=== PATIENT | female | born 1995 | race Caucasian/White ===

== ENCOUNTER 2016-11-10 17:32 | Emergency (ER) | payer OTHER ==
[~2016-11-10] VITALS: Ht 165.1 cm; Wt 96.3 kg
[~2016-11-10 17:32] MED LIST: COL100 PO; MAC100 PO; NORCO1 TA2 PO
[2016-11-10 20:59] LABS: BASOPHIL % 0.6 % (0-2); PLATELET COUNT 196 x10^3mcL (130-400)
[2016-11-10 21:00] LABS: RED CELL DISTRIBUTION WIDTH 14.7 % (11.5-14.5)
[2016-11-10 21:02] LABS: CALCIUM 8.9 mg/dL (8.5-10.1); CARBON DIOXIDE 27.7 mmol/L (21-32); CHLORIDE SERUM 107 mmol/L (98-107); CREATININE SERUM 0.7 mg/dL (0.6-1.0); GFR1 > 60 mL/min; GLUCOSE SERUM 101 mg/dL (74-106); POTASSIUM SERUM 4.3 mmol/L (3.5-5.1); SODIUM SERUM 143 mmol/L (136-145)
[2016-11-10 21:06] LABS: ALBUMIN 3.6 g/dL (3.4-5.0); ALKALINE PHOSPHATASE 64 U/L (46-116); ALT/SGPT 30 U/L (14-59); AMYLASE 54 U/L (25-115); AST/SGOT 20 U/L (15-37); BILIRUBIN TOTAL 0.64 mg/dL (0.20-1.00); LIPASE 203 IU/L (73-393); TOTAL PROTEIN, SERUM 7.3 g/dL (6.4-8.2)
[2016-11-10 22:29] VITALS: BP 144/80
== END 2016-11-10 22:29 | disposition home or self-care (01) ==
LOC: ED 17:32
PROVIDERS: Emergency Medicine
DX: K80.70 Calculus of gallbladder and bile duct without cholecystitis without obstruction (principal)
CPT/HCPCS: 83880; Q0092; Q0162

== ENCOUNTER 2017-01-24 11:51 | Emergency (ER) | payer OTHER ==
[~2017-01-24] VITALS: Ht 165.1 cm; Wt 95.2 kg
[2017-01-24 13:16] VITALS: BP 132/74
== END 2017-01-24 13:16 | disposition home or self-care (01) ==
LOC: ED 11:51
DX: K91.5 Postcholecystectomy syndrome (principal)

== ENCOUNTER 2018-03-11 20:34 | Emergency (ER) | payer OTHER ==
[~2018-03-11] VITALS: Ht 165.1 cm; Wt 101.6 kg
[2018-03-11 20:53] VITALS: Ht 165.1 cm; Wt 101.6 kg
[2018-03-11 21:58] LABS: BASOPHIL % 0.5 % (0-2); PLATELET COUNT 193 x10^3mcL (130-400)
[2018-03-11 21:59] LABS: RED CELL DISTRIBUTION WIDTH 14.7 % (11.5-14.5)
[2018-03-11 22:06] LABS: CALCIUM 8.7 mg/dL (8.5-10.1); CARBON DIOXIDE 26.4 mmol/L (21-32); CHLORIDE SERUM 106 mmol/L (98-107); CREATININE SERUM 0.7 mg/dL (0.6-1.0); GFR1 > 60 mL/min; GLUCOSE SERUM 139 mg/dL (74-106); SODIUM SERUM 141 mmol/L (136-145)
[2018-03-11 22:10] LABS: ALBUMIN 3.5 g/dL (3.4-5.0); ALKALINE PHOSPHATASE 72 U/L (46-116); ALT/SGPT 34 U/L (14-59); AMYLASE 60 U/L (25-115); AST/SGOT 20 U/L (15-37); BILIRUBIN TOTAL 0.3 mg/dL (0.20-1.00); LIPASE 239 IU/L (73-393); TOTAL PROTEIN, SERUM 7.4 g/dL (6.4-8.2)
[2018-03-11 23:45] VITALS: BP 125/82
== END 2018-03-11 23:45 | disposition home or self-care (01) ==
LOC: ED 20:34
PROVIDERS: Specialist
DX: R10.13 Epigastric pain (principal); R11.2 Nausea with vomiting, unspecified; Z90.89 Acquired absence of other organs; Z90.49 Acquired absence of other specified parts of digestive tract
CPT/HCPCS: 36415; Q0092; Q0162

== ENCOUNTER 2018-08-18 20:04 | Emergency (ER) | payer OTHER ==
[~2018-08-18] VITALS: Ht 165.1 cm; Wt 100.4 kg
[2018-08-18 20:36] VITALS: Ht 165.1 cm; Wt 100.4 kg
[2018-08-18 22:56] VITALS: BP 139/93
== END 2018-08-18 22:56 | disposition home or self-care (01) ==
LOC: ED 20:04
DX: R51 Headache (principal); R42 Dizziness and giddiness; M54.6 Pain in thoracic spine; H53.149 Visual discomfort, unspecified; Z90.89 Acquired absence of other organs
CPT/HCPCS: J1100; J1885

== ENCOUNTER 2018-11-26 23:10 | Emergency (ER) | payer SELFPAY ==
[~2018-11-26] VITALS: Ht 167.6 cm; Wt 99.8 kg
[2018-11-26 23:11] VITALS: Ht 167.6 cm; Wt 99.8 kg
[2018-11-27 04:14] LABS: BASOPHIL % 0.6 % (0-2); PLATELET COUNT 185 x10^3mcL (130-400); RED CELL DISTRIBUTION WIDTH 14.1 % (11.5-14.5)
[2018-11-27 04:42] LABS: CALCIUM 8.1 mg/dL (8.5-10.1); CARBON DIOXIDE 25.1 mmol/L (21-32); CHLORIDE SERUM 106 mmol/L (98-107); CREATININE SERUM 0.7 mg/dL (0.6-1.0); GFR1 > 60 mL/min; GLUCOSE SERUM 95 mg/dL (74-106); POTASSIUM SERUM 4.4 mmol/L (3.5-5.1); SODIUM SERUM 139 mmol/L (136-145)
[2018-11-27 04:45] LABS: ALBUMIN 3.7 g/dL (3.4-5.0); ALKALINE PHOSPHATASE 46 U/L (46-116); ALT/SGPT 36 U/L (14-59); AST/SGOT 20 U/L (15-37); BILIRUBIN TOTAL 0.52 mg/dL (0.20-1.00); LIPASE 160 IU/L (73-393)
[2018-11-27 06:07] LABS: AMPHETAMINE QUAL UR NONE DETECTED (See below)
[2018-11-27 06:16] VITALS: BP 140/77
== END 2018-11-27 06:16 | disposition home or self-care (01) ==
LOC: ED 23:10
PROVIDERS: Emergency Medicine
DX: N39.0 Urinary tract infection, site not specified (principal); R10.13 Epigastric pain; R07.89 Other chest pain; R42 Dizziness and giddiness; Z90.89 Acquired absence of other organs
CPT/HCPCS: J7030; Q0092

== ENCOUNTER 2019-06-08 21:48 | Emergency (ER) | payer OTHER ==
[~2019-06-08] VITALS: Ht 165.1 cm; Wt 103.9 kg
[2019-06-08 22:00] VITALS: Ht 165.1 cm; Wt 103.9 kg
[2019-06-08 23:37] VITALS: BP 135/90
== END 2019-06-08 23:37 | disposition home or self-care (01) ==
LOC: ED 21:48
DX: R21 Rash and other nonspecific skin eruption (principal); L29.9 Pruritus, unspecified; Z90.89 Acquired absence of other organs; Z90.49 Acquired absence of other specified parts of digestive tract

== ENCOUNTER 2019-08-10 17:38 | Emergency (ER) | payer OTHER ==
[~2019-08-10] VITALS: Ht 167.6 cm; Wt 102.1 kg
[2019-08-10 19:20] VITALS: Ht 167.6 cm; Wt 102.1 kg
[2019-08-10 20:37] VITALS: BP 140/85
== END 2019-08-10 20:37 | disposition home or self-care (01) ==
LOC: ED 17:38
DX: J06.9 Acute upper respiratory infection, unspecified (principal); Z90.89 Acquired absence of other organs; Z87.19 Personal history of other diseases of the digestive system
CPT/HCPCS: J7613; Q0092

== ENCOUNTER 2020-08-11 13:30 | Emergency (ER) | payer MEDICAID ==
[~2020-08-11] VITALS: Ht 165.1 cm; Wt 104.3 kg
[2020-08-11 13:38] VITALS: BP 138/81; Ht 165.1 cm; Wt 104.3 kg
== END 2020-08-11 15:11 | disposition home or self-care (01) ==
LOC: ED 13:30
DX: S93.402A Sprain of unspecified ligament of left ankle, initial encounter (principal); Z87.19 Personal history of other diseases of the digestive system; Z90.89 Acquired absence of other organs; X50.1XXA Overexertion from prolonged static or awkward postures, initial encounter; Y93.89 Activity, other specified; Y92.810 Car as the place of occurrence of the external cause; Y99.8 Other external cause status

== ENCOUNTER 2020-09-03 17:24 | Emergency (ER) | payer MEDICAID ==
[~2020-09-03] VITALS: Ht 165.1 cm; Wt 104.3 kg
[2020-09-03 18:17] VITALS: Ht 165.1 cm; Wt 104.3 kg
[2020-09-03 19:32] LABS: BASOPHIL % 0.6 % (0.2-1.3); PLATELET COUNT 210 x10^3mcL (179-408); RED CELL DISTRIBUTION WIDTH 13.6 % (12.3-17.7)
[2020-09-03 20:01] LABS: CARBON DIOXIDE 27.8 mmol/L (21-32); CHLORIDE SERUM 103 mmol/L (98-107); CREATININE SERUM 0.8 mg/dL (0.6-1.0); GFR1 > 60 mL/min; GLUCOSE SERUM 119 mg/dL (74-106); POTASSIUM SERUM 4.3 mmol/L (3.5-5.1); SODIUM SERUM 139 mmol/L (136-145)
[2020-09-03 20:17] LABS: ALBUMIN 3.9 g/dL (3.4-5.0); ALKALINE PHOSPHATASE 52 U/L (46-116); ALT/SGPT 41 U/L (14-59); AST/SGOT 23 U/L (15-37); BILIRUBIN TOTAL 0.55 mg/dL (0.20-1.00); TOTAL PROTEIN, SERUM 7.9 g/dL (6.4-8.2)
[2020-09-03 20:56] VITALS: BP 165/93
== END 2020-09-03 20:56 | disposition home or self-care (01) ==
LOC: ED 17:24
PROVIDERS: Emergency Medicine
DX: H81.10 Benign paroxysmal vertigo, unspecified ear (principal); Z90.89 Acquired absence of other organs
CPT/HCPCS: J8597